=== PATIENT | female | born 1990 | race Caucasian/White ===

== ENCOUNTER 2017-09-07 07:05 | Day surgery (SDC) | payer BC ==
[~2017-09-07 07:05] MED LIST: ACETAMINOPHEN 1,000 MG/100 ML BTL IV ONE
[2017-09-07] MEDS ORDERED: HYDROCODONE/APAP 7.5/325MG TABLET PO ONE (07:06)
[2017-09-07] MEDS ORDERED: PROPOFOL 10 MG/ML VIAL IV ONE (07:06)
[2017-09-07] MEDS ORDERED: LIDOCAINE 1% MDV (10MG/ML) 20ML VIAL SQ ONE (07:06)
[2017-09-07] MEDS ORDERED: SEVOFLURANE 250 ML INH ONE (07:06)
[2017-09-07] MEDS ORDERED: ONDANSETRON HCL IV 4 MG/2 ML VIAL IVP ONE (07:06)
[2017-09-07] MEDS ORDERED: KETOROLAC 30 MG/ML VIAL IVP ONE (07:06)
[2017-09-07] MEDS ORDERED: FENTANYL PF 100MCG/2ML VIAL IV ONE (07:06)
[2017-09-07] MEDS ORDERED: MIDAZOLAM HCL 2MG/2ML VIAL IV ONE (07:06)
--- NOTE | 2017-09-08 12:50 | Operative Note ---
DATE OF SURGERY: 09/07/2017 Surgeon: Jan Martinez DO PREOPERATIVE DIAGNOSIS: Carpal tunnel syndrome of the right wrist. POSTOPERATIVE DIAGNOSIS: Carpal tunnel syndrome of the right wrist. OPERATION: Decompression of right median nerve at the wrist using 3.5 loop magnification. DESCRIPTION OF PROCEDURE: This 27-year-old female was taken to the operating room and placed in the supine position on the operating room table. General anesthesia was induced. The right upper extremity was elevated. It was prepped with Hibiclens and draped in the usual sterile fashion. It was exsanguinated and the tourniquet inflated to 250 mmHg. A palmar incision was utilized following the hypothenar crease from the level of the base of the web space of the thumb to the flexor crease of the wrist. Dissection was carried down through the skin and subcutaneous tissue. Hemostasis was obtained with the electrocautery. The palmar fascia divided in line with the skin incision to expose the flexor retinaculum which was punctured and split to its proximal margin. With the contents of the carpal tunnel under direct vision, the transverse carpal ligament was transected along its ulnar border. The radial flap was raised to expose the entire median nerve under the transverse carpal ligament. The nerve itself showed some hyperemia but the recurrent motor branch of the median nerve was identified and found to be normal. The wound was irrigated with lactated Ringer's solution and the tourniquet released. Hemostasis was obtained with the electrocautery. The wound was closed with interrupted 6-0 nylon suture. Sterile dressings were applied and patient taken to the recovery room in satisfactory condition. The patient was placed in an AP plaster mold with the wrist in slight dorsiflexion and the thumb in an adducted position. [facility]
== END 2017-09-07 09:50 | disposition home or self-care (01) ==
LOC: SUR 07:05
PROVIDERS: ATTEND Orthopaedic Surgery
DX: G56.01 Carpal tunnel syndrome, right upper limb (principal)
CPT/HCPCS: 81025; J1885; J2405